=== PATIENT | male | born 1945 | race Caucasian/White ===

== ENCOUNTER 2017-04-02 13:55 | Inpatient (IN) | payer MEDICARE, MEDICAID ==
[~2017-04-02] VITALS: Ht 165.1 cm; Wt 56.7 kg
[2017-04-02] MEDS ORDERED: DOCU-25 PO (14:20)
[2017-04-02] MEDS ORDERED: OLAN10TA3 PO (14:20)
[2017-04-02] MEDS ORDERED: HYDR-3028 PO (14:20)
[2017-04-02] MEDS ORDERED: IBUP-1955 PO (14:20)
[2017-04-02] MEDS ORDERED: ATOR10TA PO (14:20)
[2017-04-02] MEDS ORDERED: ACET-2605 PO (14:20)
[2017-04-02] MEDS ORDERED: MAGN400O6 PO (14:20)
[2017-04-02] MEDS ORDERED: DIPH25CA6 PO (14:21)
[2017-04-02] MEDS ORDERED: clonazePAM 0.5 MG TABLET PO PRN (14:30)
[2017-04-02] MEDS ORDERED: MAG HYDROX/AL HYDROX/SIMETH 30 ML UDC PO PRN (14:30)
[2017-04-02] MEDS ORDERED: MAGNESIUM HYDROXIDE 30 ML UDC PO PRN ×2 (14:30→15:00)
[2017-04-02] MEDS ORDERED: ACETAMINOPHEN 325 MG TABLET PO PRN (14:30)
[2017-04-02] MEDS ORDERED: diphenhydrAMINE HCL 25 MG CAPSULE PO PRN (15:00)
[2017-04-02 16:25] VITALS: BP 140/69
--- NOTE | 2017-04-02 16:38 | NUR ---
GPS CHIEF SPECIALIST LEED NOTES: ADMITTED PATIENT AT 1430 FROM [facility] ON HOLD FOR GRAVE DISABILITY. UPON FACE TO FACE ASSESSMENT PATIENT IS A/O X1, CONFUSED, DISORIENTED, UNABLE TO PROVIDED ANY RELIABLE INFORMATION, UNCOOPERATIVE, AND UNWILLING TO ANSWER QUESTIONS. HE IS NOT IN ANY PHYSICAL DISTRESS, VS STABLE. HE REFUSED TO SIGN ADMISSION PAPERS, REFUSED FULL BODY ASSESSMENT AND MRSA SWAB. PATIENT'S BELONGINGS CHECKED FOR CONTRABAND. DR. CRANE NOTIFIED, ADMITTING ORDERS RECEIVED AND CARRIED OUT.
[2017-04-02 20:00] VITALS: BP 121/68
--- NOTE | 2017-04-03 05:30 | NUR ---
PT REFUSED BLOOD DRAW, REFUSED X 3. RISK AND BENEFITS EXPLAINED PT STILL REFUSED.
[2017-04-03] MEDS: DOCUSATE SODIUM 100 MG CAPSULE PO SCH (09:00)
[2017-04-03] MEDS: ATORVASTATIN 10 MG TABLET PO SCH (09:00)
[2017-04-03 16:00] VITALS: BP 108/60
--- NOTE | 2017-04-03 17:50 | NUR ---
Initial discharge plan: Pt. is a resident at [facility] [address] [place] [address] and would like to return. SW will follow up with facility to confirm readmission and will call Fran Vuong [phone] to confirm. SW will help form safe and proper discharge.
--- NOTE | 2017-04-03 19:55 | NUR ---
RN OPENING NOTES RECEIVED REPORT FROM [facility] RNNIKUNJ. FOUND Pt ASLEEP IN BED. EQUAL CHEST RISE AND FALL. NO S/S OF ACUTE DISTRESS OR SOB NOTED. SAFETY MEASURES IN PLACE. BED LOW, LOCKED, HOB ELEVATED, SIDE RAILS UP. WILL CONTINUE TO MONITOR Pt THROUGHOUT THE NIGHT FOR SAFETY.
[2017-04-03] MEDS: OLANZAPINE 10 MG TABLET PO SCH (21:36)
[2017-04-03] MEDS: TEMAZEPAM 7.5 MG CAPSULE PO PRN (21:36)
--- NOTE | 2017-04-04 06:40 | NUR ---
RN CLOSING NOTES NO SIGNIFICANT CHANGES DURING THE NIGHT. NO S/S OF ACUTE DISTRESS OR SOB NOTED. ALL NEEDS MET AND ATTENDED TO. SAFETY MEASURES CARRIED OUT. WILL ENDORSE TO [facility] RN FOR Pt's TINA.
--- NOTE | 2017-04-04 08:44 | NUR ---
GPS/RN PT REFUSED AM MEDS AND VS CHECK OFFERED X3.
[2017-04-04] MEDS: ATORVASTATIN 10 MG TABLET PO SCH (08:45)
[2017-04-04] MEDS: DOCUSATE SODIUM 100 MG CAPSULE PO SCH (08:45)
[2017-04-04] MEDS: ACETAMINOPHEN ES 500 MG TABLET PO PRN (13:06)
[2017-04-04 20:00] VITALS: BP 103/62
[2017-04-04] MEDS: OLANZAPINE 10 MG TABLET PO SCH (21:47)
[2017-04-04] MEDS: TEMAZEPAM 7.5 MG CAPSULE PO PRN (21:47)
[2017-04-05] MEDS: DOCUSATE SODIUM 100 MG CAPSULE PO SCH (09:00)
[2017-04-05] MEDS: ATORVASTATIN 10 MG TABLET PO SCH (09:00)
--- NOTE | 2017-04-05 09:00 | NUR ---
GPS/RN PT REFUSED AM MEDS AND BLOOD DRAW OFFERED X3.
[2017-04-05] MEDS ORDERED: HYDROGEN PEROXIDE 480 ML BOTTLE TP PRN (12:30)
[2017-04-05 13:52] LABS: CALCIUM, SERUM 8.8 mg/dL (8.5-10.1); CARBON DIOXIDE 24 mmol/L (21-32); CHLORIDE 104 mmol/L (98-107); CREATININE 0.9 mg/dL (0.6-1.3); GLUCOSE 134 mg/dL (74-106); POTASSIUM 4.3 mmol/L (3.5-5.1); SODIUM SERUM 138 mmol/L (136-145); UREA NITROGEN, BLOOD 16 mg/dL (7-18)
[2017-04-05 13:54] LABS: BASOPHILS % (AUTO) 0.6 % (0.0-2.0); EOSINOPHILS # (AUTO) 0.1 /CMM (0.0-0.7); EOSINOPHILS % (AUTO) 2.5 % (0.0-6.0); HEMATOCRIT 43 % (39-51); HEMOGLOBIN 14.3 g/dL (13.5-17.5); LYMPHOCYTES # (AUTO) 1.5 /CMM (0.8-4.8); LYMPHOCYTES % (AUTO) 26.4 % (20.0-44.0); MEAN CORPUSCULAR HEMOGLOBIN 30 PG (26.0-33.0); MEAN CORPUSCULAR HGB CONC 33 g/dl (31.0-36.0); MEAN CORPUSCULAR VOLUME 91 fL (80-96); MONOCYTES # (AUTO) 0.6 /CMM (0.1-1.30); MONOCYTES % (AUTO) 10.3 % (2.0-12.0); NEUTROPHILS # (AUTO) 3.4 /CMM (1.8-8.9); NEUTROPHILS % (AUTO) 60.2 % (43.0-81.0); PLATELET COUNT (AUTO) 196 /CMM (150-450); RED BLOOD CELL COUNT(AUTO) 4.76 MIL/uL (4.5-6.0); WHITE BLOOD COUNT (AUTO) 5.6 K/uL (4.3-11.0)
[2017-04-05 14:02] LABS: THYROID STIMULATING HORMONE 1.559 uIU/mL (0.358-3.74)
[2017-04-05 16:11] VITALS: BP 139/95
--- NOTE | 2017-04-05 19:30 | NUR ---
GPS RN OPENING NOTES: RECEIVED PT AWAKE AND IS TALKING TO PT NEXT TO HIM. NO S/S OR COMPLAINTS OF PAIN AT THIS TIME. PT IS DISPLAYING NO S/S OF APPARENT DISTRESS AT THIS TIME. PT BREATHING IS UNLABORED W/ EQUAL RISE AND FALL OF THE CHEST. PT IS A/O X 1 . PT IS MED COMPLIANT. PT REFUSES TO GET HIS VITAL SIGNS CHECKED BY REGULATORY CONSULTANT. PT DENIES SUICIDAL IDEATIONS OR HOMICIDAL IDEATIONS AT THIS TIME. PT HAS NO NEEDS AT THIS TIME. PT EDUCATED ON THE USE OF THE CALL NICKERSON. SIDE RAILS X2 UP FOR SAFETY. BED KEPT IN LOCKED AND LOWEST POSITION. WILL CONTINUE TO MONITOR AND MAINTAIN SAFETY.
[2017-04-05] MEDS: OLANZAPINE 10 MG TABLET PO SCH (21:40)
--- NOTE | 2017-04-06 07:05 | NUR ---
GPS RN CLOSING NOTES: ALL NEEDS WERE ATTENDED AND ANTICIPATED FOR. PT IS IN BED ASLEEP. NO SIGNS OR SYMPTOMS OF DISTRESS NOTED AT THIS TIME. PT REFUSED FOR SKIN ASSESSMENT/PHOTOS. CALL NICKERSON WITHIN PT'S REACH. BED KEPT IN LOCKED, LOWEST POSITION. WILL ENDORSE TO AM NURSE FOR TINA.
[2017-04-06 08:00] VITALS: BP 120/60
[2017-04-06] MEDS: DOCUSATE SODIUM 100 MG CAPSULE PO SCH (08:55)
[2017-04-06] MEDS: ATORVASTATIN 10 MG TABLET PO SCH (08:55)
[2017-04-06 16:31] VITALS: BP 128/74
[2017-04-06] MEDS: OLANZAPINE 5 MG TABLET PO SCH ×2 (21:18→21:19)
[2017-04-06] MEDS: ACETAMINOPHEN ES 500 MG TABLET PO PRN (21:19)
[2017-04-07 08:00] VITALS: BP 125/66
[2017-04-07] MEDS: DOCUSATE SODIUM 100 MG CAPSULE PO SCH ×2 (09:00→09:14)
[2017-04-07] MEDS: ATORVASTATIN 10 MG TABLET PO SCH ×2 (09:00→09:14)
--- NOTE | 2017-04-07 12:34 | NUR ---
poultry farm worker faxed initial review packet to [facility] (fax: [phone]/ phone: [phone]) [address] [place] [address]. poultry farm worker will follow-up.
--- NOTE | 2017-04-07 13:17 | NUR ---
hatchery worker spoke to Navdeep from [facility] (fax: [phone]/ phone: [phone]) [address] [place] [address]. who stated that they were unable to take the patient because patient does not have a diagnosis of dementia.
[2017-04-07 16:00] VITALS: BP 110/68
[2017-04-07 20:02] VITALS: BP 140/84
[2017-04-07] MEDS: OLANZAPINE 5 MG TABLET PO SCH (21:02)
[2017-04-07] MEDS ORDERED: OLANZAPINE 10 MG VIAL IM ONE (22:00)
[2017-04-08] MEDS: DOCUSATE SODIUM 100 MG CAPSULE PO SCH (09:00)
[2017-04-08] MEDS: ATORVASTATIN 10 MG TABLET PO SCH (09:00)
--- NOTE | 2017-04-08 09:05 | NUR ---
DIRECTOR IMAGING-NOTES PATIENT STRONGLY REFUSED ALL 0900AM MEDICATIONS DESPITE EXPLANATION OF THE RISK AND BENEFITS. STATED" I DON'T WANT MEDICATIONS NO MORE". OFFERED X3. CHARGE NURSE CRISTÓBAL TAVERA. ALSO PATIENT REFUSED VITAL SIGNS TAKEN.
[2017-04-08 16:00] VITALS: BP 133/52
[2017-04-08 20:28] VITALS: BP 110/51
[2017-04-08] MEDS: OLANZAPINE 5 MG TABLET PO SCH (21:38)
[2017-04-08] MEDS: OLANZAPINE 10 MG VIAL IM SCH (22:00)
--- NOTE | 2017-04-08 22:00 | NUR ---
RN GPS NOTES AT 2200 PT COMPLY WITH MEDS , PT. TOOK ZYPREXA 15MG PO , ZYPREXA IM NON ADMINISTRATE.
--- NOTE | 2017-04-09 06:42 | NUR ---
RN GPS NOTES PT. REFUSED AM LABS ENCOURAGED, FOR AM LAB WORK STILL REFUSED .
[2017-04-09 08:14] VITALS: BP 148/90
[2017-04-09] MEDS: ATORVASTATIN 10 MG TABLET PO SCH (08:33)
[2017-04-09] MEDS: DOCUSATE SODIUM 100 MG CAPSULE PO SCH (08:34)
[2017-04-09 09:33] LABS: BASOPHILS % (AUTO) 0.7 % (0.0-2.0); EOSINOPHILS # (AUTO) 0.1 /CMM (0.0-0.7); EOSINOPHILS % (AUTO) 2.7 % (0.0-6.0); HEMATOCRIT 39 % (39-51); HEMOGLOBIN 13.4 g/dL (13.5-17.5); LYMPHOCYTES % (AUTO) 21.1 % (20.0-44.0); MEAN CORPUSCULAR HEMOGLOBIN 31 PG (26.0-33.0); MEAN CORPUSCULAR HGB CONC 34 g/dl (31.0-36.0); MEAN CORPUSCULAR VOLUME 90 fL (80-96); MONOCYTES # (AUTO) 0.4 /CMM (0.1-1.30); MONOCYTES % (AUTO) 8.3 % (2.0-12.0); NEUTROPHILS # (AUTO) 3.2 /CMM (1.8-8.9); NEUTROPHILS % (AUTO) 67.2 % (43.0-81.0); PLATELET COUNT (AUTO) 162 /CMM (150-450); RED BLOOD CELL COUNT(AUTO) 4.34 MIL/uL (4.5-6.0); WHITE BLOOD COUNT (AUTO) 4.8 K/uL (4.3-11.0)
[2017-04-09 09:47] LABS: CALCIUM, SERUM 8.8 mg/dL (8.5-10.1); CARBON DIOXIDE 20 mmol/L (21-32); CHLORIDE 104 mmol/L (98-107); CREATININE 0.9 mg/dL (0.6-1.3); GLUCOSE 130 mg/dL (74-106); MAGNESIUM 1.9 mg/dL (1.8-2.4); PHOSPHORUS 2.6 mg/dL (2.5-4.9); POTASSIUM 3.9 mmol/L (3.5-5.1); SODIUM SERUM 138 mmol/L (136-145); UREA NITROGEN, BLOOD 19 mg/dL (7-18)
--- NOTE | 2017-04-09 12:40 | NUR ---
harm reduction worker faxed initial review packet to [facility] (phone: [phone]/ ) [address] [facility] [address]. harm reduction worker spoke to Mikayla from admissions who stated that they cannot accept the patient due to his behavior.
[2017-04-09 16:00] VITALS: BP 126/76
--- NOTE | 2017-04-09 19:57 | NUR ---
GPS RN OPENING NOTES: Received patient in bed , awake, alert to name and verbally responsive to stimuli. Denies any pain or discomfort. On room air. No acute respiratory distress noted. Denies suicidal ideation or homicidal ideation at this time. Reminded to use call light for any assistance. Safety measures maintained. Clean and dry. Will continue to monitor.
[2017-04-09] MEDS: OLANZAPINE 5 MG TABLET PO SCH (21:20)
[2017-04-09] MEDS: OLANZAPINE 10 MG VIAL IM SCH (21:22)
[2017-04-10 08:21] VITALS: BP 134/78
[2017-04-10] MEDS: DOCUSATE SODIUM 100 MG CAPSULE PO SCH (09:00)
[2017-04-10] MEDS: ATORVASTATIN 10 MG TABLET PO SCH (09:00)
--- NOTE | 2017-04-10 09:30 | NUR ---
GPS/RN PT REFUSED AM MEDS OFFERED X3
[2017-04-10 15:33] VITALS: BP 123/89
--- NOTE | 2017-04-10 18:07 | NUR ---
dry drug worker faxed patient's conservator Bijan Dahl (fax:/phone: [phone]) a letter requesting assistance with placement as patient has no skilled needs and no income. dry drug worker will follow-up.
--- NOTE | 2017-04-10 18:11 | NUR ---
vegetable farm worker faxed Wyatt from admissions initial review packet (fax: [phone]/ phone: [phone]) from [facility]. vegetable farm worker will follow-up.
[2017-04-10 20:00] VITALS: BP 115/72
[2017-04-10] MEDS: OLANZAPINE 5 MG TABLET PO SCH (21:08)
[2017-04-10] MEDS: OLANZAPINE 10 MG VIAL IM SCH (22:00)
[2017-04-10] MEDS ORDERED: ZIPRASIDONE MESYLATE 20 MG/VIAL VIAL IM ONE (23:00)
[2017-04-11 08:12] VITALS: BP 135/66
[2017-04-11] MEDS: DOCUSATE SODIUM 100 MG CAPSULE PO SCH (08:51)
[2017-04-11] MEDS: ATORVASTATIN 10 MG TABLET PO SCH (08:51)
[2017-04-11 16:18] VITALS: BP 106/64
--- NOTE | 2017-04-11 19:53 | NUR ---
GPS/RN NOTE: PATIENT RESTING, COMFORTABLE IN BED, NO APPARENT DISTRESS NOTED.
[2017-04-11] MEDS: OLANZAPINE 5 MG TABLET PO SCH (21:10)
[2017-04-11] MEDS: OLANZAPINE 10 MG VIAL IM SCH (22:00)
[2017-04-12 08:00] VITALS: BP 120/70
[2017-04-12] MEDS: DOCUSATE SODIUM 100 MG CAPSULE PO SCH (08:30)
[2017-04-12] MEDS: ATORVASTATIN 10 MG TABLET PO SCH (08:30)
[2017-04-12 16:00] VITALS: BP 134/88
[2017-04-12 20:24] VITALS: BP 120/77
[2017-04-12] MEDS: OLANZAPINE 5 MG TABLET PO SCH (21:26)
[2017-04-12] MEDS: OLANZAPINE 10 MG VIAL IM SCH (22:00)
[2017-04-13 08:00] VITALS: BP 148/76
--- NOTE | 2017-04-13 08:00 | NUR ---
GPS/RN OPENING NOTE PT. IS LYING IN BED COMFORTABLY, AWAKE, A&OX3. PT. IS BREATHING UNLABORED AND EVENLY ON ROOM AIR, WITH NO SOB. NO S/S OF ACUTE DISTRESS. PT. IS COMPLAINT WITH MORNING MEDICATIONS. BED IS IN LOW POSITION, 2 SIDE RAILS UP, AND ALL NEEDS MET. CALL BED IS WITHIN REACH, AND INSTRUCTED PT. TO USE IT FOR ASSISTANCE. WILL CONTINUE TO MONITOR AND MAINTAIN SAFETY.
[2017-04-13] MEDS: DOCUSATE SODIUM 100 MG CAPSULE PO SCH (09:20)
[2017-04-13] MEDS: ATORVASTATIN 10 MG TABLET PO SCH (09:20)
--- NOTE | 2017-04-13 15:02 | NUR ---
GPS/RN NOTES PT. IS TAKING A SHOWER AT THIS TIME. PT. REQUESTED TO TAKE A SHOWER EARLIER AND WAS GIVEN A TOWEL AND WASH CLOTH. PT. REFUSED USING SHOWER GEL.
--- NOTE | 2017-04-13 15:19 | NUR ---
GPS/RN NOTE PT. FINISHED TAKING A SHOWER AND IS IN HIS ROOM.
[2017-04-13 16:00] VITALS: BP 146/80
[2017-04-13 20:00] VITALS: BP 112/59
[2017-04-13 21:00] VITALS: BP 132/77
[2017-04-13] MEDS: OLANZAPINE 5 MG TABLET PO SCH (21:36)
[2017-04-13] MEDS: OLANZAPINE 10 MG VIAL IM SCH (22:00)
--- NOTE | 2017-04-13 22:11 | NUR ---
RN GPS NOTES AT 2200 PT COMPLY WITH MEDS , PT. TOOK ZYPREXA 15MG PO , ZYPREXA IM NON ADMINISTRATE.
[2017-04-14 08:00] VITALS: BP 146/84
[2017-04-14] MEDS: DOCUSATE SODIUM 100 MG CAPSULE PO SCH (09:00)
[2017-04-14] MEDS: ATORVASTATIN 10 MG TABLET PO SCH (09:00)
--- NOTE | 2017-04-14 10:43 | NUR ---
Patient was given a referral to Nicotine Anonymous and provided with the time and date of telephone meeting. Nicotine Anonymous meeting is held by [employer] every (with next meeting being on 04/16/2017 at 1pm). Patient is to dial [phone] and enter PIN: [id number] to join the group. This information was given to the patient. Patient also has an appointment with his psychiatrist Dr. Farmer at 09:00AM on April 15, 2017 to discuss marijuana dependence.
--- NOTE | 2017-04-14 11:00 | NUR ---
Substance abuse assessment form was completing for the patient due to a diagnosis from the psychiatrist (Dr. Bro) of R/O Substance Abuse Disorder. No toxicology is present and patient verbally reported to the psych social worker that he uses marijuana but he denied substance use on the initial psychosocial assessment. Original form was placed in the patient's chart and patient was given referrals.
--- NOTE | 2017-04-14 13:28 | NUR ---
Discharge Note: Patient will be discharged back to [facility] ([address] [place] [address] ) via [facility]. Patient denying suicidal/homicidal ideations at this time. Patient was given a referral to Nicotine Anonymous and provided with the time and date of telephone meeting. Nicotine Anonymous meeting is held by [employer] every (with next meeting being on 04/16/2017 at 1pm). Patient is to dial [phone] and enter PIN: [id number] to join the group. This information was given to the patient. Patient also has an appointment with his psychiatrist Dr. Farmer at 09:00AM on April 15, 2017 to discuss marijuana dependence and will see him at the facility. Facilitated information to IDT team who are in agreement with DC arrangement. The multidisciplinary exitcare form was done, printed, signed, and given to the patient.
--- NOTE | 2017-04-14 15:15 | NUR ---
[id number]: PT IS 71 YEARS OLD MALE DISCHARGE TO [facility] AT [address] [facility]. [id number] AT [phone] IN STABLE CONDITION. COMPLIANT WITH MEDICATIONS, COOPERATIVE WITH TREATMENT PLANS. PT DENIES SI/HI AND INSTRUCTED TO GO TO THE CLOSEST ER IF DEVELOPING SI/HI. BEHAVIOR IMPROVED, PSYCHIATRIC TX PLANS MET, MEDICAL TX PLANS DEFERRED FOR CONTINUAL MONITORING. EDUCATED PT ABOUT AFTER CARE PLAN AND COPY PROVIDED. RETURNED PERSONAL BELONGINGS TO PT. MEDICATIONS RECONCILED WITH DR. CRANE AND DR. ESPINO. REPORT GIVEN TO JOSE C AT [facility] FOR CONTINUITY OF CARE. PT SIGNED DISCHARGE PAPERWORK. PT REFUSED SKIN ASSESSMENT. PT LEFT VIA AMBULANCE ACCOMPANIED BY AMBULANCE STAFF.
== END 2017-04-14 15:15 | DRG 885 ==
LOC: ER 13:59 → GPS 14:14
PROVIDERS: ADMIT Psychiatry & Neurology Psychiatry; ATTEND Psychiatry & Neurology Psychiatry
DX: F20.0 Paranoid schizophrenia (principal); F29 Unspecified psychosis not due to a substance or known physiological condition; F41.9 Anxiety disorder, unspecified; Z73.6 Limitation of activities due to disability; E03.9 Hypothyroidism, unspecified; E78.5 Hyperlipidemia, unspecified; F32.9 Major depressive disorder, single episode, unspecified; Z59.0 Homelessness; Z79.899 Other long term (current) drug therapy; Z91.19 Patient's noncompliance with other medical treatment and regimen; F19.10 Other psychoactive substance abuse, uncomplicated
CPT/HCPCS: 36415; 80048-TC; 83735-TC; 84100-TC; 84443-TC; 85025-TC; 87081-TC